=== PATIENT | female | born 1995 ===

== ENCOUNTER → 2018-10-18 | Outpatient (CLI) | payer BC | END | disposition home or self-care (01) | LOC: LAB SHORT 18:08 → LAB 18:08 | DX: R30.0 Dysuria (principal) | CPT/HCPCS: 87077; 87086; 87186 ==

== ENCOUNTER → 2020-07-01 | Outpatient (CLI) | payer BC ==
[2020-07-04 05:10] LABS: CHLAMYDIA TRACHOMATIS, NAA Negative (Negative); NEISSERIA GONORRHOEAE, NAA Negative (Negative)
== END ==
LOC: LAB 19:32 → LAB SHORT 19:32
PROVIDERS: Registered Nurse Community Health
DX: Z34.91 Encounter for supervision of normal pregnancy, unspecified, first trimester (principal)
CPT/HCPCS: 87491; 87591; G0123

== ENCOUNTER 2021-01-30 05:13 | Inpatient (IN) | payer BC ==
[~2021-01-30] VITALS: Ht 170.2 cm; Wt 106.8 kg
[2021-01-30 05:58] LABS: BASOPHILS ABSOLUTE AUTO 0.05 K/mm3 (0.00-0.23); BASOPHILS PERCENT AUTO 1 % (0-2); EOSINOPHILS ABSOLUTE AUTO 0.27 K/mm3 (0.00-0.68); EOSINOPHILS PERCENT AUTO 3 % (0-6); Hematocrit 40.1 % (33.0-51.0); Hemoglobin 13.4 g/dL (11.5-16.0); IMMATURE GRAN ABSOLUTE AUTO 0.02 K/mm3 (0.00-0.10); IMMATURE GRAN PERCENT AUTO 0 % (0-1); LYMPHOCYTES ABSOLUTE AUTO 2.32 K/mm3 (0.84-5.20); LYMPHOCYTES PERCENT AUTO 27 % (21-46); MONOCYTES ABSOLUTE AUTO 0.93 K/mm3 (0.16-1.47); MONOCYTES PERCENT AUTO 11 % (4-13); Mean Corpuscular HGB Conc 33.4 g/dL (31.5-36.5); Mean Corpuscular Volume 90 fL (80-100); Mean Platelet Volume 11.9 fL (9.1-12.4); NEUTROPHILS PERCENT AUTO 58 % (41-73); Platelet Count 185 K/mm3 (150-400); RDW Coefficient Variation 13.8 % (11.7-14.2); RDW Standard Deviation 44.9 fL (35.1-46.3); Red Blood Cell Count 4.47 M/mm3 (3.80-5.20); White Blood Cell Count 8.59 K/mm3 (4.00-11.30)
[2021-01-30] MEDS ORDERED: PRENATAL TABLE1 EAC2 PO (06:03)
--- NOTE | 2021-01-30 07:46 | NUR ---
IV IV STARTED ON PREVIOUS SHIFT. LEFT FOREARM
--- NOTE | 2021-01-30 18:41 | NUR ---
PERINEUM PERINEUM SWOLLEN. NEW ICE PACK ON, PERIMEDS AT BEDSIDE AND TORODOL GIVEN.
--- NOTE | 2021-01-31 01:10 | NUR ---
ASSUMED CARE OF PATIENT. REPORT RECEIVED FROM JACOB RIOS. PT IS HOLDING BABY AT BREAST IN BED.
[2021-01-31] MEDS ORDERED: IBU800 MG PO (15:14)
--- NOTE | 2021-01-31 21:16 | NUR ---
DISCHARGE INSTRUCTIONS GIVEN TO PT AND REVIEWED BY RN. ALL QUESTIONS ANSWERED AND PT DENIES ANY FURTHER QUESTIONS/CONCERNS AT THIS TIME.
== END 2021-01-31 21:00 | disposition home or self-care (01) | DRG 807 ==
LOC: OBS 05:13 → BC 05:17 → OBS 05:22 → BC 05:23
PROVIDERS: ADMIT Registered Nurse Community Health
PROC: 10E0XZZ Delivery of Products of Conception, External Approach (ICD-10-PCS; principal; 2021-01-30)
PROC: 0KQM0ZZ Repair Perineum Muscle, Open Approach (ICD-10-PCS; 2021-01-30)
PROC: 10907ZC Drainage of Amniotic Fluid, Therapeutic from Products of Conception, Via Natural or Artificial Opening (ICD-10-PCS; 2021-01-30)
PROC: 3E0R3BZ Introduction of Anesthetic Agent into Spinal Canal, Percutaneous Approach (ICD-10-PCS; 2021-01-30)
PROC: 00HU33Z Insertion of Infusion Device into Spinal Canal, Percutaneous Approach (ICD-10-PCS; 2021-01-30)
PROC: 3E033VJ Introduction of Other Hormone into Peripheral Vein, Percutaneous Approach (ICD-10-PCS; 2021-01-30)
DX: O48.0 Post-term pregnancy (principal); Z37.0 Single live birth; Z3A.41 41 weeks gestation of pregnancy; O70.1 Second degree perineal laceration during delivery
CPT/HCPCS: 36415; 51702; 85025; 86850; 86900; 86901; A9270; J1885; J2001; J2590; J3010; J7120

== ENCOUNTER → 2023-08-16 | Outpatient (CLI) | payer SELFPAY ==
[~2023-08-16] MED LIST: IBU800 MG PO; PRENATAL TABLE1 EAC2 PO
[2023-08-16 19:12] LABS: Source, Urine Clean Catch
[2023-08-16 19:43] LABS: Bilirubin, Urine Neg (Neg); Blood, Urine Neg (Neg); Glucose Qualitative, Urine Neg (Neg); Ketones, Urine Neg (Neg); Leukocyte Esterase, Urine 1+ (Neg); Nitrite, Urine Neg (Neg); Protein, Urine Neg (Neg); Urobilinogen, Urine NORM (Normal); pH, Urine 6.5 (5.0-8.0)
[2023-08-16 19:50] LABS: Appearance, Urine Clear (Clear); Color, Urine Yellow (P-Yellow)
[2023-08-16 19:51] LABS: Bacteria Rare /hpf; Red Blood Cells, Urine 0-2 /hpf (0-2); Squamous Epithelial Cells Rare /hpf (Few); White Blood Cells, Urine 0-2 /hpf (0-5)
[2023-08-16 19:52] LABS: BASOPHILS ABSOLUTE AUTO 0.06 K/mm3 (0.00-0.23); BASOPHILS PERCENT AUTO 1 % (0-2); EOSINOPHILS ABSOLUTE AUTO 0.16 K/mm3 (0.00-0.68); EOSINOPHILS PERCENT AUTO 2 % (0-6); Hematocrit 38.5 % (33.0-51.0); Hemoglobin 12.7 g/dL (11.5-16.0); IMMATURE GRAN ABSOLUTE AUTO 0.03 K/mm3 (0.00-0.10); IMMATURE GRAN PERCENT AUTO 0 % (0-1); LYMPHOCYTES ABSOLUTE AUTO 2.02 K/mm3 (0.84-5.20); LYMPHOCYTES PERCENT AUTO 22 % (21-46); MONOCYTES ABSOLUTE AUTO 0.83 K/mm3 (0.16-1.47); MONOCYTES PERCENT AUTO 9 % (4-13); Mean Corpuscular HGB 30.1 pg (26.0-34.0); Mean Corpuscular Volume 91 fL (80-100); Mean Platelet Volume 11.6 fL (9.1-12.4); NEUTROPHILS ABSOLUTE AUTO 6.25 K/mm3 (1.96-9.15); NEUTROPHILS PERCENT AUTO 67 % (41-73); Platelet Count 244 K/mm3 (150-400); RDW Coefficient Variation 12.9 % (11.7-14.2); RDW Standard Deviation 42.5 fL (35.1-46.3); Red Blood Cell Count 4.22 M/mm3 (3.80-5.20); White Blood Cell Count 9.35 K/mm3 (4.00-11.30)
[2023-08-18 17:23] LABS: HEPATITIS B SURFACE ANTIGEN Negative (Negative)
[2023-08-19 10:08] LABS: HEPATITIS C AB CIA INTERP Negative (Negative); HEPATITIS C ANTIBODY CIA INDEX 0.11 IV
[2023-08-19 13:38] LABS: HIV 1,2 COMBO ANTIGEN/ANTIBODY Negative (Negative)
== END ==
LOC: LAB 18:48 → LAB SHORT 18:48
PROVIDERS: Registered Nurse Community Health
DX: Z34.91 Encounter for supervision of normal pregnancy, unspecified, first trimester (principal); Z3A.00 Weeks of gestation of pregnancy not specified
CPT/HCPCS: 81001; 84443; 86803; 87086; 87340; 87389

== ENCOUNTER → 2024-02-21 | Outpatient (CLI) | payer BC ==
[2024-02-24 20:04] LABS: APTIMA MEDIA TYPE Urine; C. TRACHOMATIS BY TMA Negative (Negative); N. GONORRHOEAE BY TMA Negative (Negative); SPECIMEN SOURCE Urine
== END ==
LOC: LAB SHORT 17:52 → LAB 17:52
PROVIDERS: Registered Nurse Community Health
DX: Z3A.35 35 weeks gestation of pregnancy (principal)
CPT/HCPCS: 87491; 87591

== ENCOUNTER → 2024-02-28 | Outpatient (CLI) | payer BC | END | disposition home or self-care (01) | LOC: LAB 19:44 → LAB SHORT 19:44 | DX: Z3A.36 36 weeks gestation of pregnancy (principal) | CPT/HCPCS: 87081; 87150 ==

== ENCOUNTER 2024-03-15 07:05 | Inpatient (IN) | payer BC ==
[~2024-03-15] VITALS: Ht 170.2 cm; Wt 96.0 kg
[2024-03-15] VITALS (31 sets, daily range): BP systolic 96–147; BP diastolic 51–84
[2024-03-15] MEDS ORDERED: Ondansetron HCl 2 MG / ML 2ML Vial IV PRN (07:30)
[2024-03-15] MEDS ORDERED: Carboprost Tromethamine 250 MCG/ML 1ML Amp IM PRN (07:30)
[2024-03-15] MEDS ORDERED: Oxytocin 10 Unit / ML Vial IM PRN (07:30)
[2024-03-15] MEDS ORDERED: Misoprostol 200 MCG Tab XX PRN (07:30)
[2024-03-15] MEDS ORDERED: Acetaminophen 500 MG Tab PO PRN (07:30)
[2024-03-15] MEDS ORDERED: Methylergonovine Maleate 0.2MG / ML 1ML Amp IM PRN ×2 (07:30→19:25)
[2024-03-15] MEDS ORDERED: OXYTOCIN/RINGER'S LACTATE 500 ML IV SCH ×3 (07:30→19:30)
[2024-03-15] MEDS ORDERED: Tranexamic Acid 100 ML IV SCH (07:30)
[2024-03-15] MEDS ORDERED: Misoprostol 200 MCG Tab PR PRN ×2 (07:30→19:35)
[2024-03-15] MEDS ORDERED: Lactated Ringer's 1,000 ML IV PRN (07:30)
[2024-03-15] MEDS ORDERED: Calcium Carbonate 500 MG Tab Chew PO SCH (07:30)
[2024-03-15] MEDS ORDERED: Lactated Ringer's 1,000 ML IV SCH ×4 (07:35→19:30)
[2024-03-15] MEDS ORDERED: ePHEDrine Sulfate 50 MG/ML 1ML Injection XX PRN (07:35)
[2024-03-15] MEDS ORDERED: FentaNYL 2mcg/ml-Bup 0.1% Epd 250 ML EPI PRN (07:35)
[2024-03-15 08:09] LABS: BASOPHILS ABSOLUTE AUTO 0.07 K/mm3 (0.00-0.23); BASOPHILS PERCENT AUTO 1 % (0-2); EOSINOPHILS ABSOLUTE AUTO 0.32 K/mm3 (0.00-0.68); EOSINOPHILS PERCENT AUTO 4 % (0-6); Hematocrit 36.2 % (33.0-51.0); Hemoglobin 12.3 g/dL (11.5-16.0); IMMATURE GRAN ABSOLUTE AUTO 0.03 K/mm3 (0.00-0.10); IMMATURE GRAN PERCENT AUTO 0 % (0-1); LYMPHOCYTES PERCENT AUTO 28 % (21-46); MONOCYTES ABSOLUTE AUTO 1.06 K/mm3 (0.16-1.47); MONOCYTES PERCENT AUTO 12 % (4-13); Mean Corpuscular HGB 29.4 pg (26.0-34.0); Mean Corpuscular Volume 87 fL (80-100); Mean Platelet Volume 11.5 fL (9.1-12.4); NEUTROPHILS ABSOLUTE AUTO 4.99 K/mm3 (1.96-9.15); NEUTROPHILS PERCENT AUTO 56 % (41-73); Platelet Count 242 K/mm3 (150-400); RDW Standard Deviation 43.8 fL (35.1-46.3); Red Blood Cell Count 4.18 M/mm3 (3.80-5.20); White Blood Cell Count 8.97 K/mm3 (4.00-11.30)
[2024-03-15] MEDS ORDERED: Measles/Mumps/Rubella Vaccine 0.5 ML Vial SC ONE (19:25)
[2024-03-15] MEDS ORDERED: Ibuprofen 400 MG Tab PO PRN (19:25)
[2024-03-15] MEDS ORDERED: Oxytocin 10 Unit / ML Vial IM ONE (19:30)
[2024-03-15] MEDS ORDERED: Witch Hazel/Glycerin PADS TOP PRN (19:30)
[2024-03-15] MEDS ORDERED: Docusate Sodium 100 MG Cap PO PRN (19:30)
[2024-03-15] MEDS ORDERED: Diphth,Pertuss(Acell),Tet Vac 0.5 ML VIAL IM ONE (19:35)
[2024-03-15] MEDS ORDERED: OxyCODONE 5 mg/Acetamin 325 mg TABLET PO PRN (19:35)
[2024-03-15] MEDS ORDERED: Acetaminophen/Codeine 300-30 mg PO PRN (19:35)
[2024-03-15] MEDS ORDERED: Acetaminophen 325 MG TABLET PO PRN (19:35)
[2024-03-15] MEDS ORDERED: Rho(D) Immune Globulin 300 MCG / SYR IM ONE (19:35)
[2024-03-15] MEDS ORDERED: Benzocaine Topical Anesthetic Spray 60GM TOP PRN (19:35)
[2024-03-15] MEDS ORDERED: Ketorolac Tromethamine 30mg Vial IV ONE (20:00)
[2024-03-15] MEDS ORDERED: Ketorolac Tromethamine 30mg Vial IV PRN (20:00)
[2024-03-16 05:43] LABS: Hematocrit 33.7 % (33.0-51.0); Hemoglobin 11.4 g/dL (11.5-16.0); Mean Corpuscular HGB Conc 33.8 g/dL (31.5-36.5); Mean Corpuscular Volume 89 fL (80-100); Mean Platelet Volume 11.8 fL (9.1-12.4); Platelet Count 212 K/mm3 (150-400); RDW Coefficient Variation 14.1 % (11.7-14.2); RDW Standard Deviation 45.6 fL (35.1-46.3); White Blood Cell Count 16.47 K/mm3 (4.00-11.30)
[2024-03-16] MEDS ORDERED: Lanolin Cream TOP SCH (07:40)
[2024-03-16] MEDS ORDERED: Prenatal Vit/FE Fumarate/FA 1 Tab PO SCH (09:00)
[2024-03-16 17:00] VITALS: BP 112/68
[2024-03-16 19:52] VITALS: BP 116/74
--- NOTE | 2024-03-16 20:08 | NUR ---
PT D/C HOME. DISCHARGE TEACHING REVIEWED, SHE HAS NO QUESTION AT THIS TIME. ADVISE PT TO CALL [facility] WITH ANY QUESTIONS THAT SHE MAY THINK OF WHEN SHE GETS HOME. ESCORTED PT AND FAMIILY OUT TO CAR.
--- NOTE | 2024-03-21 18:43 | NUR ---
UPDATE PER EMR - TO FLOW TO PK
== END 2024-03-16 20:00 | disposition home or self-care (01) | DRG 807 ==
LOC: OBS 07:05 → BC 07:09 → OBS 07:18 → BC 07:19
PROVIDERS: ADMIT Registered Nurse Community Health
PROC: 10E0XZZ Delivery of Products of Conception, External Approach (ICD-10-PCS; principal; 2024-03-15)
PROC: 10907ZC Drainage of Amniotic Fluid, Therapeutic from Products of Conception, Via Natural or Artificial Opening (ICD-10-PCS; 2024-03-15)
PROC: 3E0R3BZ Introduction of Anesthetic Agent into Spinal Canal, Percutaneous Approach (ICD-10-PCS; 2024-03-15)
PROC: 00HU33Z Insertion of Infusion Device into Spinal Canal, Percutaneous Approach (ICD-10-PCS; 2024-03-15)
PROC: 0HQ9XZZ Repair Perineum Skin, External Approach (ICD-10-PCS; 2024-03-15)
DX: O76 Abnormality in fetal heart rate and rhythm complicating labor and delivery (principal); Z37.0 Single live birth; Z3A.39 39 weeks gestation of pregnancy; O70.0 First degree perineal laceration during delivery
CPT/HCPCS: 36415; 51702; 85025; 85027; 86850; 86900; 86901; A9270; J1885; J2590; J7120